=== PATIENT | male | born 1960 | race Caucasian/White ===

== ENCOUNTER 2020-12-31 20:46 | Emergency (ER) | payer MEDICAID, OTHER ==
[~2020-12-31] VITALS: Ht 175.3 cm; Wt 72.3 kg
[~2020-12-31 20:46] MED LIST: ROSU20TA2 PO; ZOLP-413 PO
[2020-12-31] MEDS ORDERED: LIDOCAINE-MPF 1%, 5ML INFIL ONE (21:30)
[2020-12-31] MEDS ORDERED: DIPH,PERTUSS(ACELL),TET VAC/PF 0.5 ML IM-VACC ONE ×2 (21:30→21:56)
--- NOTE | 2020-12-31 22:03 | NUR ---
report from varinder norman. Pt given tdap. pt resting with no needs. call light in reach
[2020-12-31] MEDS ORDERED: LIDOCAINE-MPF 1%, 5ML ONE (22:09)
--- NOTE | 2020-12-31 23:15 | NUR ---
PA AT BEDSIDE
[2020-12-31] MEDS ORDERED: NEOSPORIN OINT. PKT 1 PACKET ONE (23:54)
[2021-01-01 00:10] VITALS: BP 141/73
== END 2021-01-01 00:12 | disposition home or self-care (01) ==
LOC: ED 23:10
DX: S01.01XA Laceration without foreign body of scalp, initial encounter (principal); M54.2 Cervicalgia; E78.5 Hyperlipidemia, unspecified; Y93.89 Activity, other specified; W01.0XXA Fall on same level from slipping, tripping and stumbling without subsequent striking against object, initial encounter; Y92.009 Unspecified place in unspecified non-institutional (private) residence as the place of occurrence of the external cause; Y99.8 Other external cause status
CPT/HCPCS: 12032; 70450; 72125; 90471; 90715; 99285